=== PATIENT | male | born 1985 | race Caucasian/White ===

== ENCOUNTER 2024-04-28 02:16 | Emergency (ER) | payer MEDICAID ==
[~2024-04-28] VITALS: Ht 182.9 cm; Wt 100.0 kg
[2024-04-28 02:23] VITALS: O2SAT 98
[2024-04-28 05:05] VITALS: BP 135/83; PULSE 97; RESP 16; TEMP 36.8; O2SAT 98
== END 2024-04-28 05:06 | disposition home or self-care (01) ==
LOC: ER 02:16
DX: H93.13 Tinnitus, bilateral (principal); I10 Essential (primary) hypertension
CPT/HCPCS: 99283